=== PATIENT | male | born 1970 | race Hispanic/Latino ===

== ENCOUNTER 2018-10-02 14:57 | Inpatient (IN) | payer MEDICARE, OTHER ==
[2018-10-02 15:53] LABS: BASO # 0.2 K/uL (0.0-0.2); BASO % 2.9 % (0.0-2.0); EOS # 0.5 K/uL (0.0-0.7); EOS % 6.3 % (0.0-4.0); HEMOGLOBIN 15.1 g/dL (12.0-18.0); LYMPH # 2.3 K/uL (1.0-4.3); LYMPH % 32.1 % (20.0-40.0); MEAN CELL VOLUME 94.9 fL (80.0-94.0); MEAN CORPUSCULAR HEMOGLOBIN 33.7 pg (27.0-31.0); MEAN CORPUSCULAR HGB CONC 35.4 g/dL (33.0-37.0); MEAN PLATELET VOLUME 7.8 fL (7.2-11.7); MONO # 0.8 K/uL (0.0-0.8); MONO % 10.7 % (0.0-10.0); NEUT # 3.5 K/uL (1.8-7.0); NRBC % 0.1 % (0.0-2.0); RBC 4.48 Mil/uL (4.40-5.90); RED CELL DISTRIBUTION WIDTH 13.2 % (11.5-14.5); WHITE BLOOD COUNT 7.3 K/uL (4.8-10.8)
[2018-10-02 15:57] LABS: URINE BILIRUBIN NEGATIVE (NEGATIVE); URINE BLOOD NEGATIVE (NEGATIVE); URINE CLARITY Clear (Clear); URINE COLOR Straw (YELLOW); URINE GLUCOSE (UA) NORMAL (Normal); URINE LEUKOCYTE ESTERASE NEG Leu/uL (Negative); URINE PROTEIN NEGATIVE (NEGATIVE); URINE UROBILINOGEN NORMAL mg/dL (0.2-1.0)
[2018-10-02 16:16] LABS: BARBITURATES, UR NEGATIVE (NEGATIVE); BENZODIAZEPINES, UR NEGATIVE (NEGATIVE); PHENCYCLIDINE, UR NEGATIVE (NEGATIVE)
[2018-10-02 16:17] LABS: ALB/GLOB RATIO 1.5 (1.0-2.1); ALBUMIN 4.9 g/dL (3.5-5.0); ALT/SGPT 33 U/L (21-72); AST/SGOT 33 U/L (17-59); BLOOD UREA NITROGEN 10 mg/dL (9-20); GFR NON-AFRICAN AMERICAN > 60
[2018-10-02 16:23] LABS: OPIATES, UR POSITIVE (NEGATIVE)
--- NOTE | 2018-10-02 16:28 | C.PDOC ---
Time Seen by Provider: 10/02/18 15:10 Chief Complaint (Nursing): Substance Abuse Past Medical History Vital Signs: Last Vital Signs Temp 98.5 F 10/02/18 16:00 Pulse 87 10/02/18 16:00 Resp 18 10/02/18 16:00 BP 104/67 10/02/18 16:00 Pulse Ox 95 10/02/18 16:00 - Medical History PMH: Seizures (20 YRS AGO, FROM W/D) - Social History Hx Alcohol Use: Yes Hx Substance Use: Yes (HAS MANY RX BENZO) ED Course And Treatment - Laboratory Results Result Diagrams: 10/02/18 15:49 10/02/18 15:49 O2 Sat by Pulse Oximetry: 95 Disposition - Disposition Forms: [facility] ([place])
--- NOTE | 2018-10-02 16:30 | C.PDOC ---
History Of Present Illness 48 y/o male presents to the ER requesting detox from opiates and ETOH. Patient states that he uses heroin intranasally. Patient reports that he also takes benzodiazepines. He notes that his last use was yesterday. Denies having suici yvon ideation, homicidal ideation, and active physical complaints. Time Seen by Provider: 10/02/18 15:10 Chief Complaint (Nursing): Substance Abuse History Per: Patient History/Exam Limitations: no limitations Past Medical History Reviewed: Historical Data, Nursing Documentation, Vital Signs Vital Signs: Last Vital Signs Temp 98.5 F 10/02/18 16:00 Pulse 87 10/02/18 16:00 Resp 18 10/02/18 16:00 BP 104/67 10/02/18 16:00 Pulse Ox 95 10/02/18 16:00 - Medical History PMH: Seizures (20 YRS AGO, FROM W/D) Surgical History: No Surg Hx Family History: States: No Known Family Hx - Social History Hx Alcohol Use: Yes Hx Substance Use: Yes (HAS MANY RX BENZO) Review Of Systems Except As Marked, All Systems Reviewed And Found Negative. Constitutional: Negative for: Fever, Chills Psych: Negative for: Suicidal ideation Physical Exam - Physical Exam Appears: No Acute Distress Skin: Normal Color, Warm, Dry Head: Atraumatic, Normacephalic Eye(s): bilateral: Normal Inspection Nose: Normal Oral Mucosa: Moist Neck: Supple Chest: Symmetrical Cardiovascular: Rhythm Regular Respiratory: Normal Breath Sounds, No Rales, No Rhonchi, No Wheezing Gastrointestinal/Abdominal: Normal Exam, Soft, No Tenderness, No Guarding, No Rebound Neurological/Psych: Oriented x3, Normal Speech ED Course And Treatment - Laboratory Results Result Diagrams: 10/02/18 15:49 10/02/18 15:49 O2 Sat by Pulse Oximetry: 95 (RA) Pulse Ox Interpretation: Normal Medical Decision Making Medical Decision Making: Impression: Detox from Opiates and ETOH Plan: * Labs * UA Labs ordered for medical clearance Labs reviewed with no acute findings. In my clinical judgment patient is medica lly cleared and stable for admission. PES contacted for evaluation. 0 As per PES patient is to be admitted under Dr Ladd service for detox Disposition - Disposition Disposition: HOSPITALIZED Disposition Time: 18:47 Condition: STABLE - POA Present On Arrival: None - Clinical Impression Clinical Impression: Alcohol abuse - PA / [employer] / Resident Statement /DO has reviewed & agrees with the documentation as recorded. - Scribe Statement The provider has reviewed the documentation as recorded by the Alana Andres Provider Attestation All medical record entries made by the Alana were at my direction and personall y dictated by me. I have reviewed the chart and agree that the record accurately reflects my personal performance of the history, physical exam, medical decision making, and the department course for this patient. I have also personally directed, reviewed, and agree with the discharge instructions and disposition. Decision To Admit - Pt Status Changed To: Hospital Disposition Of: Inpatient - Admit Certification Admit to Inpatient:: After my assessment, the patient will require h ospitalization for at least two midnights. This is because of the severity of symptoms shown, intensity of services needed, and/or the medical risk in this patient being treated as an outpatient. - InPatient: Physician Admission Certification: I certify that this patient requires 2 or more midnights of care for the following reason:: patient would benefit from inpatient detox - . Bed Request Type: Detox Admitting Physician: Jaiden Ladd Patient Diagnosis: Alcohol abuse
--- NOTE | 2018-10-02 19:13 | PCM.BM ---
<Daya Lu - Last Filed: 10/02/18 19:10> Treatment Plan Problems - Problems identified on initial assessmt potiential for autonomic instability related to alcohol and anxiolytic abuse Date Initiated: 10/02/18 Time Initiated: 19:12 Assessment reference: NA Status: Active potiential for opiate withdrawal Date Initiated: 10/02/18 Time Initiated: 19:13 Assessment reference: NA Status: Active Treatment assets and liabiliti Patient Assests: ADL independent, good support system, cognitively intact Patient Liabilities: live alone, substance abuse, medical problems - Milieu Protocol Maintain good personal hygiene: daily Encourage regular showers, daily Remind patient to perform daily oral care, daily Assist patient to perform ADL's Maintain personal safety: every shift Educate patient to report safety concerns to staff, every shift Monitor environment for contraband/sharps Medication safety: Monitor for expected outcome, potential side effects: every shift, Assess barriers to learning: every shift, Assess readiness for medication education: every shift <Jaiden Ladd - Last Filed: 10/04/18 11:33> - Diagnosis (1) Alcohol use disorder, severe, dependence Status: Acute Interventions: 10/03/18 11:32 * Assess 7x/week regarding severity of withdrawal * Educate regarding risks, benefits, side effects and alternatives of medications * Use Motivational Interviewing for abstinence * Use CBT for relapse prevention * Medication management for withdrawal symptoms * Encourage medication assisted treatment * (2) Opioid use disorder, severe, dependence Status: Acute Interventions: 10/03/18 11:33 * Assess 7x/week regarding severity of withdrawal * Educate regarding risks, benefits, side effects and alternatives of medications * Use Motivational Interviewing for abstinence * Use CBT for relapse prevention * Medication management for withdrawal symptoms * Encourage medication assisted treatment * (3) Sedative, hypnotic or anxiolytic use disorder, severe, dependence Status: Acute Interventions: 10/03/18 11:33 * Assess 7x/week regarding severity of withdrawal * Educate regarding risks, benefits, side effects and alternatives of medications * Use Motivational Interviewing for abstinence * Use CBT for relapse prevention * Medication management for withdrawal symptoms * Encourage medication assisted treatment *
[2018-10-03] MEDS: Aluminum Hydroxide/Magnesium Hydroxide Susp (30 mL) PO PRN (01:12)
[2018-10-03] MEDS: Multiple Vitamins Tab PO SCH (09:06)
--- NOTE | 2018-10-03 11:57 | PCM.PSYCH ---
Initial Psychiatric Evaluation - Initial Psychiatric Evaluation Type of Admission: Voluntary Legal Status: Capacity Chief Complaint (in patient's own words): "I need to stop this" History of Present Illness and Precipitating Events: The pt is seen, chart reviewed, case discussed with staff. 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 Patient presented to detox yesterday for opioid and alcohol. He states that his last drink was yesterday. Hes had a drinking problem for a year. He states that he drinks a case of beer and vodka, a day. His first drink was at 13. He gets significant alcohol withdrawal including DTs and one seizure. He states that he has been to detox and rehab, 20 years ago. He used to attend AA meetings, but then stopped a year ago. Patient currently takes 5 to 6, 30 mg opioid pills a day. His method of use is snorting by crushing. He has used a bundle of heroin a few times in the past. He was first prescribed opioids a year ago for chronic pain. He started abusing opioids 3 months ago. He last used opioids yesterday afternoon. He admits to using cocaine and marijuana in the past, but no longer uses. However, he is into benzodiazepines and has little insight on the risks b/c his dr prescribes them. He had been given all of the rx benzos over the years and still has a rx for ativan. He has overused them but also "didn't take at times." Patient smokes a few cigarettes occasionally. Past Psych Hx: Patient states that he currently has social anxiety. He states that he had depression 20 years ago, for which he took SSRIs for. He currently sees a psychiatrist, Dr. Mendoza. Past Family Psych Hx: Denies. Medical Hx: Carpal Tunnel Syndrome Current Medications: Active Medications Generic Name Dose Route Start Last Admin Trade Name Freq PRN Reason Stop Dose Admin Al Hydrox/Mg Hydrox/Simethicone 30 ml 10/02/18 19:53 10/03/18 01:12 Maalox 30 Ml PO 30 ml TID PRN Administration Indigestion / Heartburn Chlordiazepoxide 25 mg 10/02/18 23:22 10/03/18 11:51 Librium PO 10/07/18 20:59 25 mg Q6 SHARAD Administration Taper Clonidine HCl 0.1 mg 10/02/18 19:53 Catapres PO Q4 PRN COWS Score More or Equal to 5 Folic Acid 1 mg 10/03/18 10:00 10/03/18 09:06 Folic Acid PO 1 mg DAILY SHARAD Administration Gabapentin 400 mg 10/03/18 14:00 Neurontin PO TID SHARAD Hydroxyzine HCl 50 mg 10/02/18 19:54 Atarax PO Q6H PRN Anxiety Ibuprofen 600 mg 10/02/18 19:54 Motrin Tab PO Q6H PRN Pain, moderate (4-7) Loperamide HCl 2 mg 10/02/18 19:53 Imodium PO Q8 PRN Diarrhea Methadone HCl 15 mg 10/04/18 10:00 Methadone PO 10/08/18 09:59 Q24H SHARAD Taper Multivitamins 1 tab 10/03/18 10:00 10/03/18 09:06 Hexavitamin PO 1 tab DAILY SHARAD Administration Ondansetron HCl 4 mg 10/02/18 19:53 Zofran Tab PO Q8 PRN Nausea/Vomiting Thiamine HCl 100 mg 10/03/18 10:00 10/03/18 09:07 Vitamin B1 Tab PO 100 mg DAILY SHARAD Administration Trazodone HCl 100 mg 10/02/18 19:54 Desyrel PO HS PRN Insomnia Past Psychiatric History - Past Psychiatric History Previous Treatment History: Intensive Outpatient Pertinent Medical Hx (Current Medical&Sleep Prob, Allergies): Allergies Allergy/AdvReac Type Severity Reaction Status Date / Time acetaminophen [From Tylenol] Allergy Verified 10/02/18 15:10 aspirin Allergy Verified 10/02/18 15:10 Ativan 1 mg PO QID 10/02/18 Klonopin 1 mg PO QID 10/02/18 Valium 10 mg PO QID 10/02/18 Xanax 1 mg PO 5XD 10/02/18 Review of Systems - Psychiatric Psychiatric: Abnormal Sleep Pattern, Anhedonia, Anxiety, Difficulty Concentrating. absent: Homicidal Ideation, Paranoia, Suicidal Ideation Mental Status Examination - Personal Presentation Personal Presentation: Looks stated age - Affect Affect: Broad - Motor Activity Motor Activity: Calm - Reliability in Providing Information Reliability in Providing Information: Good - Speech Speech: Organized - Mood Mood: Anxious - Formal Thought Process Formal Thought Process: No Impairment - Cognitive Functions Orientation: Person, Place, Situation, Time Sensorium: Alert Attention/Concentration: Attentive Estimate of Intelligence: Average Judgement: Intact, as evidence by: Insight regarding need for hospitalization Memory: Recent intact, as evidence by: Ability to recall events of the day, Remote intact, as evidenced by: Abilit to recall sig. life events - Risk Risk: Withdrawal, Diminished functioning - Strength & Assets Inventory Strength & Assets Inventory: Cooperative - Limitations Limitations: Living alone DSM 5 DX - DSM 5 DSM 5 Diagnosis: Alcohol withdrawal Opioid withdrawal Alcohol Use Disorder, severe. Opioid Use Disorder, severe. Sedative, hypnotic or anxiolytic Use d/o - sevre Social Anxiety Disorder. - Recommended/Plan of Treatment Treatment Recommendations and Plan of Treatment: As needed medications such as methadone or suboxone. All risks, benefits and alternatives of the meds discussed, and the pt agreed and understood. Attend groups and activities such as Alcoholics Anonymous meetings. Psychoeducation and support daily Encourage compliance with meds and after care Projected ELOS: 4-5 days Prognosis: good w treatment - Smoking Cessation Smoking Cessation Initiated: Yes
[2018-10-04] MEDS: Multiple Vitamins Tab PO SCH (09:21)
--- NOTE | 2018-10-04 15:47 | PCM.PYCHPN ---
Psychiatric Progress Note - Psychiatric Progress Note Patient seen today, length of contact: 15-minute Patient Chief Complaint: I am feeling little better. Problems Identified/Issues Discussed: Patient seen, chart reviewed, case discussed with the staff. Issues related to illness and treatment were discussed with the patient and staff. Reported compliant with treatment with no adverse effects. Tolerating treatment very well. Reported feeling little better. Awake, alert and confused Calm and cooperative with good eye contact. Mood reported as depressed, but less than before. Affect appropriate. Treatment discussed with the patient. Needs more time for stabilization. Aftercare discussed with the patient. Denied any delusions, auditory or visual hallucinations, suicidal ideations or homicidal ideations at the time of evaluation. Medical Problems: None reported Diagnostic Results: Reviewed DSM 5 Symptoms Update: Some improvement with treatment Medication Change: No Medical Record Reviewed: Yes Mental Status Examination - Cognitive Function Orientation: Person, Place, Situation, Time Memory: Intact Attention: WNL Concentration: WNL Association: WNL Fund of Knowledge: WN Decription of patient's judgement and insights: Fair - Mood Mood: Anxious - Affect Affect: Other (Appropriate) - Speech Speech: Appropriate - Formal Thought Process Formal Thought Process: No Impairment Psychotic Thoughts and Behaviors: None - Suicidal Ideation Suicidal Ideation: No - Homicidal Ideation Homicidal Ideation: No Goal/Treatment Plan - Goal/Treatment Plan Need for Continued Stay: Remain at risks for inpatient hospitalization, Discharge may exacerbated symptoms, Severe functional impairment Progress Toward Problem(s) and Goals/Treatment Plan: Patient education. Supportive therapy. CBT for relapse prevention. [place] for abstinence. Continue treatment as before. Estimated Date of D/C: 10/07/18 - Smoking Cessation Smoking Cessation Initiated: No
[2018-10-05] MEDS: Multiple Vitamins Tab PO SCH (10:01)
[2018-10-05] MEDS: Aluminum Hydroxide/Magnesium Hydroxide Susp (30 mL) PO PRN ×2 (11:21→15:23)
--- NOTE | 2018-10-05 11:54 | PCM.PYCHPN ---
Psychiatric Progress Note - Psychiatric Progress Note Patient seen today, length of contact: 18 min Patient Chief Complaint: "I am anxious" Problems Identified/Issues Discussed: The pt is seen, chart reviewed, case discussed with staff. The pt is compliant with medications and reports no side-effects. Symptoms are improving but needs more time to stabilize. He is still questioning why he can't use his ativan along with the librium taper (??) Risks of benzo dependence discussed in detail but he still believes he can use it w/o addicting to it and that they are the DANNI ones that helped. Pt attends groups and activities. Support given, psycho-education provided. After care discussed. Medication Change: Yes (detox changes daily) Medical Record Reviewed: Yes Mental Status Examination - Cognitive Function Orientation: Person, Place, Situation, Time Memory: Intact Attention: WNL Concentration: Poor Association: WNL Fund of Knowledge: WNL - Mood Mood: Anxious - Affect Affect: Broad - Speech Speech: Appropriate - Formal Thought Process Formal Thought Process: No Impairment - Suicidal Ideation Suicidal Ideation: No - Homicidal Ideation Homicidal Ideation: No Goal/Treatment Plan - Goal/Treatment Plan Need for Continued Stay: Discharge may exacerbated symptoms, Severe functional impairment Progress Toward Problem(s) and Goals/Treatment Plan: As needed medications such as methadone or suboxone. All risks, benefits and alternatives of the meds discussed, and the pt agreed and understood. Attend groups and activities such as Alcoholics Anonymous meetings. Psychoeducation and support daily Encourage compliance with meds and after care He wants to be d/c'ed tomorrow rather than Monday - to be discussed
[2018-10-06] MEDS: Multiple Vitamins Tab PO SCH (09:30)
--- NOTE | 2018-10-06 19:13 | PCM.PYCHPN ---
Psychiatric Progress Note - Psychiatric Progress Note Patient seen today, length of contact: 15 minutes Patient Chief Complaint: Feeling much better, waiting for my discharge. Problems Identified/Issues Discussed: Patient seen, chart reviewed, case discussed with the staff. Issues related to illness and treatment were discussed with the patient and staff. Reported compliant with treatment with no adverse effects. Tolerating treatment very well. Reported feeling little better. Awake, alert and confused Calm and cooperative with good eye contact. Mood reported as anxious. Affect appropriate. Treatment discussed with the patient. Needs more time for stabilization. Aftercare discussed with the patient. Denied any delusions, auditory or visual hallucinations, suicidal ideations or homicidal ideations at the time of evaluation. Medical Problems: None reported Diagnostic Results: Reviewed DSM 5 Symptoms Update: Improving with treatment Medication Change: No Medical Record Reviewed: Yes Mental Status Examination - Cognitive Function Orientation: Person, Place, Situation, Time Memory: Intact Attention: WNL Concentration: WNL Association: [facility] Fund of Knowledge: [facility] Decription of patient's judgement and insights: Fair - Mood Mood: Anxious (Much less than before) - Affect Affect: Other (Appropriate) - Speech Speech: Appropriate - Formal Thought Process Formal Thought Process: No Impairment Psychotic Thoughts and Behaviors: None - Suicidal Ideation Suicidal Ideation: No - Homicidal Ideation Homicidal Ideation: No Goal/Treatment Plan - Goal/Treatment Plan Need for Continued Stay: Remain at risks for inpatient hospitalization, Discharge may exacerbated symptoms, Severe functional impairment Progress Toward Problem(s) and Goals/Treatment Plan: Improving with treatment. Patient education. Supportive therapy. CBT for relapse prevention. MT for abstinence. Continue treatment as before. Patient will go to [facility] for follow-up care after discharge from the hospital. Estimated Date of D/C: 10/07/18 - Smoking Cessation Smoking Cessation Initiated: No
--- NOTE | 2018-10-07 09:08 | PCM.PYCHDC ---
Mental Status Examination - Mental Status Examination Orientation: Person Discharge Summary - Discharge Note Consultations:: List each consultation separately and include: 1. Reason for request. 2. Findings. 3. Follow-up Summary of Hospital Course include:: 1. Description of specific treatment plan utilized for patients during their course of treatmen. 2. Summarize the time- course for resolution of acute symptoms and/or regressed behaviors. 3. Describe issues identified and worked on during hospitalization. 4. Describe medication utilized. 5. Describe medical problems identified and treated. 6. Reassessment of suicide risk Summary of Hospital Course: The pt is seen, chart reviewed, case discussed with staff. 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 Patient presented to detox yesterday for opioid and alcohol. He states that his last drink was yesterday. Hes had a drinking problem for a year. He states that he drinks a case of beer and vodka, a day. His first drink was at 13. He gets significant alcohol withdrawal including DTs and one seizure. He states that he has been to detox and rehab, 20 years ago. He used to attend AA meetings, but then stopped a year ago. Patient currently takes 5 to 6, 30 mg opioid pills a day. His method of use is snorting by crushing. He has used a bundle of heroin a few times in the past. He was first prescribed opioids a year ago for chronic pain. He started abusing opioids 3 months ago. He last used opioids yesterday afternoon. He admits to using cocaine and marijuana in the past, but no longer uses. However, he is into benzodiazepines and has little insight on the risks b/c his dr prescribes them. He had been given all of the rx benzos over the years and still has a rx for ativan. He has overused them but also "didn't take at times." Patient smokes a few cigarettes occasionally. Past Psych Hx: Patient states that he currently has social anxiety. He states that he had depression 20 years ago, for which he took SSRIs for. He currently sees a psychiatrist, Dr. Mendoza. Past Family Psych Hx: Denies. Medical Hx: Carpal Tunnel Syndrome He will go to a Suboxone doctor Natanael Quezada MD at [address], [place]. - Diagnosis (1) Alcohol use disorder, severe, dependence Current Visit: Yes Status: Acute (2) Opioid use disorder, severe, dependence Current Visit: Yes Status: Acute (3) Sedative, hypnotic or anxiolytic use disorder, severe, dependence Current Visit: Yes Status: Acute - Final Diagnosis (DSM 5) Condition upon Discharge: STABLE Disposition: HOME/ ROUTINE Follow-up Treatment Plan: As needed medications such as methadone or suboxone. All risks, benefits and alternatives of the meds discussed, and the pt agreed and understood. Attend groups and activities such as Alcoholics Anonymous meetings. Psychoeducation and support daily Encourage compliance with meds and after care He wants to be d/c'ed tomorrow rather than Monday - to be discussed Prescriptions/Medication Reconciliation: Gabapentin [Neurontin] 400 mg PO TID #90 cap hydrOXYzine HCl [Atarax] 50 mg PO DAILY PRN #30 tab PRN Reason: Anxiety traZODone [Desyrel] 100 mg PO HS PRN #30 tab PRN Reason: Insomnia
[2018-10-07] MEDS: Multiple Vitamins Tab PO SCH (09:11)
[2018-10-07 09:18] VITALS: BP 126/86; PULSE 77; RESP 20; TEMP 98; O2SAT 95
== END 2018-10-07 09:15 | disposition home or self-care (01) | DRG 897 ==
LOC: C.ER 14:57 → C.7D 18:52
PROVIDERS: ADMIT Psychiatry & Neurology Psychiatry; ATTEND Psychiatry & Neurology Psychiatry
DX: F11.23 Opioid dependence with withdrawal (principal); F17.210 Nicotine dependence, cigarettes, uncomplicated; F10.230 Alcohol dependence with withdrawal, uncomplicated; F40.10 Social phobia, unspecified; R56.9 Unspecified convulsions; Y90.7 Blood alcohol level of 200-239 mg/100 ml